=== PATIENT | female | born 1960 | race Caucasian/White ===

== ENCOUNTER 2017-01-20 16:26 | Inpatient (IN) ==
[2017-01-20] MEDS ORDERED: ASPIRIN 81 MG TAB.CHEW CHEWED ONE (16:33)
[2017-01-20] MEDS ORDERED: IPRATROPIUM/ALBUTEROL 3 ML AMPUL.NEB NEB ONE ×2 (16:33→19:04)
--- NOTE | 2017-01-20 16:40 | Emergency Department Note ---
SOB HPI - General Chief Complaint: Shortness of Breath/Dyspnea Stated Complaint: short of breath Time Seen by Provider: 01/20/17 16:33 Source: patient, family Mode of arrival: wheelchair Limitations: physical limitation - History of Present Illness 56-year-old female with a history of shortness of breath and wheezing over the past 24 hours. Increased over the past 6 hours. Has a history of asthma and COPD she did states that she had an episode of left arm pain for an hour and a half prior to coming to the ED. denies any pain at this time there is no chest pain. Denies cough there has been no sputum production. She denies upper respiratory type signs or symptoms. Patient is afebrile denies any GI disturbances denies nausea vomiting no diarrhea constipation problems no hematemesis no melena - Related Data Home Medications Medication Instructions Recorded Confirmed Atorvastatin [Lipitor] 80 mg PO HS 06/21/15 06/23/15 Carbidopa/Levodopa 25/250 [Sinemet 1 tab PO BID 06/21/15 06/23/15 25/250] Carvedilol [Coreg] 18.75 mg PO BIDCC 06/21/15 06/23/15 Clopidogrel [Plavix] 75 mg PO DAILY 06/21/15 06/23/15 Cyclobenzaprine [Flexeril] 10 mg PO TID 06/21/15 06/23/15 DULoxetine HCL [Cymbalta] 120 mg PO DAILY 06/21/15 06/23/15 Doxepin [Sinequan] 25 mg PO HS 06/21/15 06/23/15 Estradiol [Estrace] 2 mg PO DAILY 06/21/15 06/23/15 Etodolac [Etodolac ER] 1,200 mg PO BID 06/21/15 06/23/15 Fenofibrate Nanocrystallized 145 mg PO DAILY 06/21/15 06/23/15 [Fenofibrate] Furosemide [Lasix] 40 mg PO DAILY 06/21/15 06/23/15 Ipratropium [place] [Atrovent Hfa] 1 - 2 puff INH Q6H 06/21/15 06/23/15 Ipratropium/Albuterol [Duoneb] 3 ml NEB Q4HP PRN 06/21/15 06/23/15 Lansoprazole [Prevacid] 30 mg PO DAILY 06/21/15 06/23/15 sitaGLIPtin [Januvia] 100 mg PO DAILY 06/21/15 06/23/15 Insulin 70/30, Human [Novolin 70 - 80 unit SQ ACB 06/23/15 06/23/15 70/30] Isosorbide Mononitrate [Isosorbide 60 mg PO HS 06/23/15 06/23/15 Mononitrate ER] Methocarbamol [Robaxin] 500 mg PO TID 06/23/15 06/23/15 Metoclopramide [Reglan] 10 mg PO BIDAC 06/23/15 06/23/15 Montelukast [Singular] 10 mg PO HS 06/23/15 06/23/15 Zolpidem [Ambien] 10 mg PO HSP PRN 06/23/15 06/23/15 Allergies Allergy/AdvReac Type Severity Reaction Status Date / Time aspirin Allergy Anaphylaxis Verified 06/21/15 18:07 ramelteon [From Rozerem] Allergy Unknown Verified 06/24/15 11:09 trazodone Allergy Unknown Verified 06/24/15 11:09 Review of Systems All systems ED: reviewed and negative except as stated. Constitutional: Denies: fever ENT ED: Denies: ear pain Cardiovascular: Denies: chest pain Respiratory: Reports: dyspnea, wheezes. Denies: cough, hemoptysis Gastrointestinal: Denies: abdominal pain, nausea, vomiting Genitourinary: Denies: urgency, dysuria Past Medical History - Past Medical History Medical history: Reports: CHF, COPD, fibromyalgia, other (Migraines, peripheral neuropathy, CHF,) Surgical history ED: Reports: other (Cardiac cath, knee surgery) Psychiatric history: Reports: depression - Social History smoking status: Former smoker Alcohol use: Reports: None Drug use: Reports: none Physical Exam - General Limitations: physical limitation General appearance: alert - Head Head exam: atraumatic - Eye Eye exam: Present: normal appearance, PERRL - ENT ENT exam: normal exam, normal oropharynx - Neck Neck exam: Present: normal inspection, full ROM - Chest Chest inspection: Present: normal inspection - Respiratory Respiratory exam: Present: normal lung sounds bilaterally - Cardiovascular Cardiovascular exam: Present: regular rate, normal rhythm - Abdominal Exam Abdominal exam: Present: soft. Absent: distention, tenderness - Extremities Exam Extremities exam: Present: normal inspection, full ROM - Back Exam Back exam: Present: normal inspection, full ROM - Neurological Exam Neurological exam: Present: oriented X3, CN II-XII intact - Psychiatric Psychiatric exam: Present: normal affect Course Vital Signs Temperature 98.1 F 01/20/17 16:26 Pulse Rate 102 H 01/20/17 16:26 Respiratory Rate 20 01/20/17 16:26 Blood Pressure 152/76 01/20/17 16:26 Pulse Oximetry (%) 87 L 01/20/17 16:26 Temperature 98.1 F 01/20/17 16:26 Pulse Rate 108 H 01/20/17 19:09 Respiratory Rate 17 01/20/17 19:09 Blood Pressure 126/66 01/20/17 18:48 Pulse Oximetry (%) 100 01/20/17 19:09 Shortness of Breath/Dyspnea - Lab Data Result diagrams: 01/20/17 16:37 01/20/17 16:36 Lab Results 01/20/17 01/20/17 01/20/17 Range/Units 16:36 16:36 16:37 WBC 8.1 (4.5-11.0) K/mcL RBC 3.41 L (4.00-5.20) M/mcL Hgb 10.4 L (12.0-15.0) g/dL Hct 32.2 L (36.0-48.0) % POC Hct (36.0-48.0) % MCV 94.3 (80.0-100.0) fL MCH 30.6 (26.0-34.0) pg MCHC 32.4 (31.0-36.0) g/dL RDW 16.8 H (11.5-14.5) % Plt Count 186 (140-440) K/mcL MPV 7.7 (7.4-10.4) fL Gran % 83.1 H (38.0-78.0) % Lymph % (Auto) 8.5 L (15.5-49.0) % [place] % (Auto) 5.2 (1.0-12.0) % Eos % (Auto) 3.1 (0.0-7.0) % Baso % (Auto) 0.1 (0.0-2.0) % Gran # 6.7 (1.8-8.0) K/mcL Lymph # 0.7 L (1.5-4.8) K/mcL [place] # 0.4 (0.1-0.9) K/mcL Eos # 0.3 (0.0-0.7) K/mcL Baso # 0 (0.0-0.3) K/mcL POC Sodium (133-145) mmol/L Sodium Cancelled 140 POC Potassium (3.3-5.1) mmol/L Potassium Cancelled 5.6 H POC Chloride (96-108) mmol/L Chloride Cancelled 97 Carbon Dioxide Cancelled 25 POC Total CO2 (22-30) mmol/L Anion Gap Cancelled 18.0 H POC BUN (6-20) mg/dl BUN Cancelled 57 H Creatinine Cancelled 1.5 H POC Creatinine (0.6-1.1) mg/dl GFR Calculation Cancelled 39 BUN/Creatinine Ratio Cancelled Glucose Cancelled 184 H POC Glucose (70-105) mg/dL Calcium Cancelled 9.9 POC WB Ioniz Calcium (1.16-1.32) mmol/L Total Bilirubin Cancelled 0.8 AST Cancelled 52 H ALT Cancelled 21 Alkaline Phosphatase Cancelled 32 L Total Creatine Kinase 46 (24-170) IU/L CK-MB (CK-2) 2.9 (0-2.9) ng/ml Myoglobin 46 (25-58) ng/ml Troponin T (0-0.03) ng/ml NT-Pro-B Natriuret Pep 1261.0 H (0-125) pg/ml Total Protein Cancelled 7.9 Albumin Cancelled 4.4 Globulin Cancelled 3.5 Albumin/Globulin Ratio Cancelled 1.3 Urine Color Urine Appearance Urine pH (5.0-9.0) Ur Specific [place] (1.000-1.035) Urine Protein (NEG) mg/dL Urine Glucose (UA) (NEG) mg/dL Urine Ketones (NEG) mg/dL Urine Occult Blood (<0.03) mg/dL Urine Nitrate (NEG) Urine Bilirubin (NEG) mg/dL Urine Ictotest (NEG) Urine Urobilinogen (NEG) mg/dL Ur Leukocyte Esterase (NEG) /uL Ur Culture Indicated? 01/20/17 01/20/17 01/20/17 Range/Units 16:37 18:18 19:40 WBC (4.5-11.0) K/mcL RBC (4.00-5.20) M/mcL Hgb (12.0-15.0) g/dL Hct (36.0-48.0) % POC Hct 31.0 L (36.0-48.0) % MCV (80.0-100.0) fL MCH (26.0-34.0) pg MCHC (31.0-36.0) g/dL RDW (11.5-14.5) % Plt Count (140-440) K/mcL MPV (7.4-10.4) fL Gran % (38.0-78.0) % Lymph % (Auto) (15.5-49.0) % [place] % (Auto) (1.0-12.0) % Eos % (Auto) (0.0-7.0) % Baso % (Auto) (0.0-2.0) % Gran # (1.8-8.0) K/mcL Lymph # (1.5-4.8) K/mcL [place] # (0.1-0.9) K/mcL Eos # (0.0-0.7) K/mcL Baso # (0.0-0.3) K/mcL POC Sodium 140 (133-145) mmol/L Sodium POC Potassium 5.0 (3.3-5.1) mmol/L Potassium POC Chloride 104 (96-108) mmol/L Chloride Carbon Dioxide POC Total CO2 28 (22-30) mmol/L Anion Gap POC BUN 58 H (6-20) mg/dl BUN Creatinine POC Creatinine 1.4 H (0.6-1.1) mg/dl GFR Calculation BUN/Creatinine Ratio Glucose POC Glucose 101 (70-105) mg/dL Calcium POC WB Ioniz Calcium 1.08 L (1.16-1.32) mmol/L Total Bilirubin AST ALT Alkaline Phosphatase Total Creatine Kinase (24-170) IU/L CK-MB (CK-2) (0-2.9) ng/ml Myoglobin (25-58) ng/ml Troponin T < 0.01 (0-0.03) ng/ml NT-Pro-B Natriuret Pep (0-125) pg/ml Total Protein Albumin Globulin Albumin/Globulin Ratio Urine Color Yellow Urine Appearance Clear Urine pH 5.0 (5.0-9.0) Ur Specific [place] 1.016 (1.000-1.035) Urine Protein Neg (NEG) mg/dL Urine Glucose (UA) Negative (NEG) mg/dL Urine Ketones Neg (NEG) mg/dL Urine Occult Blood Neg (<0.03) mg/dL Urine Nitrate Neg (NEG) Urine Bilirubin Neg (NEG) mg/dL Urine Ictotest Neg (NEG) Urine Urobilinogen 4.0 A (NEG) mg/dL Ur Leukocyte Esterase Neg (NEG) /uL Ur Culture Indicated? No Disposition Condition: Fair Referrals: Delmar Thapa MD [Primary Care Provider] -
[2017-01-20] MEDS ORDERED: ASPIRIN 81 MG TAB.CHEW ONE (16:41)
[2017-01-20 17:03] LABS: Basophils # (Auto) 0 K/mcL (0.0-0.3); Basophils % (Auto) 0.1 % (0.0-2.0); Eosinophils # (Auto) 0.3 K/mcL (0.0-0.7); Eosinophils % (Auto) 3.1 % (0.0-7.0); Granulocytes % (Auto) 83.1 % (38.0-78.0); Lymphocytes # (Auto) 0.7 K/mcL (1.5-4.8); Lymphocytes % (Auto) 8.5 % (15.5-49.0); Mean Cell Volume 94.3 fL (80.0-100.0); Mean Corpuscular HGB Conc 32.4 g/dL (31.0-36.0); Mean Corpuscular Hemoglobin 30.6 pg (26.0-34.0); Monocytes # (Auto) 0.4 K/mcL (0.1-0.9); Monocytes % (Auto) 5.2 % (1.0-12.0); Platelet Count 186 K/mcL (140-440); RBC 3.41 M/mcL (4.00-5.20); Red Cell Distribution Width 16.8 % (11.5-14.5)
--- NOTE | 2017-01-20 17:11 | XRay Report ---
CLINICAL INFORMATION: Chest pain COMPARISON: 06/26/2015 FINDINGS: Mild cardiomegaly is unchanged. Scoliosis distorts the mediastinal contours - as previously seen. Mediastinum is otherwise normal. Pulmonary vessels are unremarkable with lungs are clear. No effusions. IMPRESSION: Mild cardiomegaly - stable. No acute disease Interpreted and Authenticated by: Horace Currie 01/20/17
[2017-01-20 17:28] LABS: Creatine Kinase 46 IU/L (24-170); Creatine Kinase MB 2.9 ng/ml (0-2.9); Myoglobin 46 ng/ml (25-58)
[2017-01-20 17:29] LABS: ALT/SGPT 21 U/l (0-40); Albumin 4.4 gm/dL (3.2-5.2); Albumin/Globulin Ratio 1.3 (1.0-2.3); Alkaline Phosphatase 32 U/L (39-117); Blood Urea Nitrogen 57 mg/dl (6-20)
[2017-01-20 19:35] LABS: Appearance,Urine CLEAR; Bilirubin,Urine NEG (NEG); Color,Urine YELLOW; Glucose,Urine (UA) NEGATIVE (NEG); Ictotest,Urine NEG (NEG); Leukocyte Esterase,Urine NEG /uL (NEG); Nitrate,Urine NEG (NEG); Protein,Urine NEG (NEG); Specific Gravity,Urine 1.016 (1.000-1.035); Urine Blood NEG mg/dL (<0.03)
[2017-01-20] MEDS ORDERED: DOXEPIN 25 MG CAPSULE PO SCH (21:00)
--- NOTE | 2017-01-20 22:09 | Internal Med History&Physical ---
Medical - H&P: HPI Patient information: Note initiated : 01/20/17 at 10:03 pm Service Date, if different from initiated Date: [] Patient: Cari Ni a 56 y/o F admitted on for short of breath. Chief Complaint: [] History of present illness: Ms. Ni is a 56 year old female with h/o copd on home oxygen 3L, DM, and multiple comorbidities presents to the ER with shortness of breath x 1 week the patient notes she has been feeling short of breath associated with wheezing 1 week ago, was seen by her PCP who started her on medrol dose pack, she had some improvement but over last 2 days her condition has worsened, She is short of breath, with decreased a functional status, she is using duonebs q 2 hrs at home and was still not doing well, there fore she decided to come to the ER. The patient notes she has had cough x 2 days, dry. The patient in the ER was noted to be needing increased oxygen, 5L to maintain her oxygen saturation, lab work is unremarkable (chr anemia), ua is negative. CXR is negative. EKG does not show any acute ST wave changes, trop x 2 is neg. The patient reports one sick contact, likely grand daughter approx 1 week ago. She will be admitted to the hospital for futher management. All systems: reviewed and no additional remarkable complaints except as stated ( as per HPI) Medical - H&P: PMH Medical history: Medical History (Last Updated 01/15/17 @ 14:27 by [employer]) Muscle spasm of back (Acute) Exacerbation of chronic back pain (Acute) Shortness of Breath (Acute) Anemia (Acute) CHF CAD DM Morbid obesity Chr back pain Asthma Surgical history: Hysterectomy Cholesycstectomy tonsillectomy Pertinent family history: father with cad, dm, htn, copd grandfather asthma Social history: lives alone with her pet dog (educated regarding increased risk of asthma, copd ) ex smoker, quit 10 yrs ago, approx 32 pack year denies recreational drugs Medical - H&P: Meds Home Medications Medication Instructions Recorded Confirmed Type Atorvastatin [Lipitor] 80 mg PO HS 06/21/15 06/23/15 History Carbidopa/Levodopa 25/250 [Sinemet 1 tab PO BID 06/21/15 06/23/15 History 25/250] Carvedilol [Coreg] 18.75 mg PO BIDCC 06/21/15 06/23/15 History Clopidogrel [Plavix] 75 mg PO DAILY 06/21/15 06/23/15 History DULoxetine HCL [Cymbalta] 120 mg PO DAILY 06/21/15 06/23/15 History Doxepin [Sinequan] 25 mg PO HS 06/21/15 06/23/15 History Estradiol [Estrace] 2 mg PO DAILY 06/21/15 06/23/15 History Etodolac [Etodolac ER] 1,200 mg PO BID 06/21/15 06/23/15 History Fenofibrate Nanocrystallized 145 mg PO DAILY 06/21/15 06/23/15 History [Fenofibrate] Furosemide [Lasix] 40 mg PO DAILY 06/21/15 06/23/15 History Ipratropium [place] [Atrovent Hfa] 1 - 2 puff INH Q6H 06/21/15 06/23/15 History Ipratropium/Albuterol [Duoneb] 3 ml NEB Q4HP PRN 06/21/15 06/23/15 History Lansoprazole [Prevacid] 30 mg PO DAILY 06/21/15 06/23/15 History sitaGLIPtin [Januvia] 100 mg PO DAILY 06/21/15 06/23/15 History Insulin 70/30, Human [Novolin 70 - 80 unit SQ ACB 06/23/15 06/23/15 History 70/30] Isosorbide Mononitrate [Isosorbide 60 mg PO HS 06/23/15 06/23/15 History Mononitrate ER] Methocarbamol [Robaxin] 500 mg PO TID 06/23/15 06/23/15 History Metoclopramide [Reglan] 10 mg PO BIDAC 06/23/15 06/23/15 History Zolpidem [Ambien] 10 mg PO HSP PRN 06/23/15 06/23/15 History Ezetimibe 10 mg PO DAILY 01/20/17 01/20/17 History Ezetimibe [Zetia] 10 mg PO HS 01/20/17 01/20/17 History Fenofibrate Nanocrystallized 145 mg PO DAILY 01/20/17 01/20/17 History [[place]] Fluticasone Propionate [Flonase] 2 spray NS BID 01/20/17 01/20/17 History Insulin 70/30, Human [Novolin 180 - 200 unit SQ DAILY 01/20/17 01/20/17 History 70/30] Metolazone 5 mg PO DAILY 01/20/17 01/20/17 History Nitroglycerin [Nitrostat] 0.4 mg SL Q5M PRN 01/20/17 01/20/17 History Omeprazole 40 mg PO DAILY 01/20/17 01/20/17 History glipiZIDE/METFORMIN HCL 2 each PO BID 01/20/17 01/20/17 History [Glipizide-Metformin 5-500 mg] methylPREDNISolone [Medrol] 4 mg PO TID 01/20/17 01/20/17 History Allergies Allergy/AdvReac Type Severity Reaction Status Date / Time aspirin Allergy Anaphylaxis Verified 06/21/15 18:07 ramelteon [From Rozerem] Allergy Unknown Verified 06/24/15 11:09 trazodone Allergy Unknown Verified 06/24/15 11:09 Medical - H&P: Exam - Constitutional Vitals: Temp Pulse Resp BP Pulse Ox 98.1 F 104 H 17 150/86 83 L 01/20/17 16:26 01/20/17 21:28 01/20/17 21:28 01/20/17 21:16 01/20/17 21:28 Exam: GENERAL: The patient is a well-developed, well-nourished in no apparent distress. Is alert and oriented x3. morbidly obese VITAL SIGNS: Reviewed and as noted elsewhere. HEENT: Head is normocephalic and atraumatic. Extraocular muscles are intact. Pupils are equal, round, and reactive to light. Nares appeared normal. Mouth appears any without lesions. Mucous membranes are moist. NECK: Normal to inspection, Supple, No lymphadenopathy or thyromegaly. LUNGS: Air entry equal on both sides, decreased air entry, prolonged exp phase, shagufta exp wheezing. no crackles, speaking full sentences, no accessory muscle use. HEART: Regular rate and rhythm normal, S1 and S2 heard, no Gallop, S3 or Rub Noted, No Gross murmur heard. ABDOMEN: Soft, nontender, and nondistended. Positive bowel sounds. No hepatosplenomegaly was noted. EXTREMITIES: No cyanosis, clubbing, rash, lesions or edema. NEUROLOGIC: Cranial nerves II through XII are grossly intact. Motor and Sensory System Grossly Intact PSYCHIATRIC: Normal affect, Normal Mood. Appropriate Behavior. SKIN: No ulceration or wounds noted, No jaundice, No rash noted. Medical - H&P: Reslt - Labs CBC & Chem 7: 01/20/17 16:37 01/20/17 16:36 Labs: Short CBC 01/20/17 Range/Units 16:37 WBC 8.1 (4.5-11.0) K/mcL Hgb 10.4 L (12.0-15.0) g/dL Hct 32.2 L (36.0-48.0) % Plt Count 186 (140-440) K/mcL BMP 01/20/17 01/20/17 16:36 16:36 Sodium Cancelled 140 Potassium Cancelled 5.6 H Chloride Cancelled 97 Carbon Dioxide Cancelled 25 BUN Cancelled 57 H Creatinine Cancelled 1.5 H Glucose Cancelled 184 H Calcium Cancelled 9.9 Cardiac Enzymes 01/20/17 01/20/17 01/20/17 Range/Units 16:36 16:37 19:40 Total Creatine Kinase 46 (24-170) IU/L CK-MB (CK-2) 2.9 (0-2.9) ng/ml Troponin T < 0.01 < 0.01 (0-0.03) ng/ml Liver Function 01/20/17 01/20/17 Range/Units 16:36 16:36 Total Bilirubin Cancelled 0.8 AST Cancelled 52 H ALT Cancelled 21 Alkaline Phosphatase Cancelled 32 L Albumin Cancelled 4.4 Urine 01/20/17 Range/Units 18:18 Urine Color Yellow Urine Appearance Clear Urine pH 5.0 (5.0-9.0) Ur Specific [place] 1.016 (1.000-1.035) Urine Protein Neg (NEG) mg/dL Urine Glucose (UA) Negative (NEG) mg/dL - EKG Data EKG comments: 01/20/17 22:17 sinus, no acute ST wave changes. Medical - H&P: A/P - Narrative A/P Narrative: A/P Acute on Chr resp failure: On 5L of oxygen, at home on 3L, secondary to COPD exacerbation, continue management of underlying condition. Acute COPD exacerbation: Failed outpatient treatment, treat with duonebs, IV steroids, zithromax. DM: Hold home meds, sliding scale insulin for now Chr back pain: resume home meds once verified. CHF: not fluid overloaded clinically, bnp elevated, monitor, resume home meds Morbid obesty DVT heparin sq Diet DM, cardiac diet Code : DNR
[2017-01-20] MEDS ORDERED: NALOXONE HCL 0.4 MG/ML VIAL IV PRN (22:29)
[2017-01-20] MEDS ORDERED: NITROGLYCERIN 0.4 MG TAB.SUBL SL PRN (22:29)
[2017-01-20] MEDS ORDERED: DEXTROSE 50% 50 ML VIAL IV PRN (22:29)
[2017-01-20] MEDS ORDERED: MAGNESIUM HYDROXIDE 30 ML ORAL.SUSP PO PRN (22:29)
[2017-01-20] MEDS ORDERED: ACETAMINOPHEN 325 MG TABLET PO PRN (22:29)
[2017-01-20] MEDS ORDERED: AZITHROMYCIN 250 MG TABLET PO ONE (22:29)
[2017-01-20] MEDS ORDERED: ONDANSETRON 4 MG/2 ML VIAL IV PRN (22:29)
[2017-01-20] MEDS: HEPARIN 5,000 UNIT/ML VIAL SQ SCH (23:08)
[2017-01-20] MEDS: ZOLPIDEM 10 MG TABLET PO PRN (23:09)
[2017-01-20] MEDS: METOCLOPRAMIDE 10 MG TABLET PO SCH (23:09)
[2017-01-20] MEDS: ISOSORBIDE MONONITRATE 60 MG TAB.XL.24H PO SCH (23:09)
[2017-01-20] MEDS: DOXEPIN 25 MG CAPSULE PO SCH (23:09)
[2017-01-20] MEDS: HYDROcodone/APAP 5/325MG TABLET PO PRN (23:09)
[2017-01-20] MEDS: methylPREDNISolone SOD SUCC 125 MG/2 ML VIAL IV SCH (23:10)
[2017-01-20] MEDS: METHOCARBAMOL 750 MG TABLET PO SCH (23:10)
[2017-01-20] MEDS: IPRATROPIUM/ALBUTEROL 3 ML AMPUL.NEB NEB SCH (23:21)
[2017-01-21] MEDS: IPRATROPIUM/ALBUTEROL 3 ML AMPUL.NEB NEB SCH ×6 (02:04→23:04)
[2017-01-21] MEDS: HYDROcodone/APAP 5/325MG TABLET PO PRN ×2 (03:46→20:33)
[2017-01-21 05:33] LABS: Basophils # (Auto) 0 K/mcL (0.0-0.3); Basophils % (Auto) 0 % (0.0-2.0); Eosinophils # (Auto) 0.1 K/mcL (0.0-0.7); Eosinophils % (Auto) 1.4 % (0.0-7.0); Granulocytes % (Auto) 91.9 % (38.0-78.0); Lymphocytes # (Auto) 0.3 K/mcL (1.5-4.8); Lymphocytes % (Auto) 4.2 % (15.5-49.0); Mean Cell Volume 95.5 fL (80.0-100.0); Mean Corpuscular HGB Conc 32.4 g/dL (31.0-36.0); Mean Corpuscular Hemoglobin 30.9 pg (26.0-34.0); Monocytes # (Auto) 0.2 K/mcL (0.1-0.9); Monocytes % (Auto) 2.5 % (1.0-12.0); Platelet Count 158 K/mcL (140-440); RBC 3.28 M/mcL (4.00-5.20)
[2017-01-21] MEDS: methylPREDNISolone SOD SUCC 125 MG/2 ML VIAL IV SCH ×3 (06:03→22:35)
[2017-01-21 06:13] LABS: ALT/SGPT 25 U/l (0-40); Albumin 4.1 gm/dL (3.2-5.2); Albumin/Globulin Ratio 1.2 (1.0-2.3); Alkaline Phosphatase 30 U/L (39-117); Bilirubin,Direct 0.2 mg/dL (0.0-0.3); Blood Urea Nitrogen 46 mg/dl (6-20); Gamma Glutamyl Transpeptidase 43 U/L (5-36); Magnesium 1.9 mg/dL (1.6-2.5); Uric Acid 4.7 mg/dL (2.5-8.0)
[2017-01-21] MEDS: METOCLOPRAMIDE 10 MG TABLET PO SCH ×4 (07:26→20:33)
[2017-01-21] MEDS: METOLAZONE 2.5 MG TABLET PO SCH (07:26)
[2017-01-21] MEDS: INSULIN LISPRO 1 UNIT/0.01 ML UNIT SQ SCH ×5 (07:26→22:35)
[2017-01-21] MEDS: PANTOPRAZOLE 40 MG TABLET PO SCH (07:26)
[2017-01-21] MEDS ORDERED: NON FORMULARY MEDICATION 1 DOSE MISCELL (Lansoprazole [Prevacid] 30 MG) PO SCH (09:00)
[2017-01-21] MEDS ORDERED: CARBIDOPA/LEVODOPA 25/250 TABLET PO SCH (09:00)
[2017-01-21] MEDS ORDERED: CARBIDOPA/LEVODOPA 10/100 TABLET PO ONE (09:15)
[2017-01-21] MEDS: diphenhydrAMINE 25 MG CAPSULE PO SCH (09:24)
[2017-01-21] MEDS: ESTRADIOL 1 MG TABLET PO SCH (09:24)
[2017-01-21] MEDS: METHOCARBAMOL 750 MG TABLET PO SCH ×3 (09:25→20:32)
[2017-01-21] MEDS: DULoxetine 30 MG CAPSULE PO SCH (09:25)
[2017-01-21] MEDS: FUROSEMIDE 40 MG TABLET PO SCH ×2 (09:25→15:54)
[2017-01-21] MEDS: EZETIMIBE 10 MG TABLET PO SCH (09:25)
[2017-01-21] MEDS: CLOPIDOGREL 75 MG TABLET PO SCH (09:25)
[2017-01-21] MEDS: CARVEDILOL 12.5 MG TABLET PO SCH ×2 (09:25→17:21)
[2017-01-21] MEDS: FENOFIBRATE 43 MG CAPSULE PO SCH (09:25)
[2017-01-21] MEDS: AZITHROMYCIN 250 MG TABLET PO SCH (09:26)
[2017-01-21] MEDS: HEPARIN 5,000 UNIT/ML VIAL SQ SCH ×2 (09:26→20:34)
[2017-01-21] MEDS: FLUTICASONE PROPIONATE SPRAY.NAS NS SCH ×2 (09:27→22:00)
--- NOTE | 2017-01-21 10:21 | Internal Med Progress Note ---
Medical - PN: Subj Patient information: Note initiated : 01/21/17 at 10:15 am Service Date, if different from initiated Date: [] Patient: Cari Ni a 56 y/o F admitted on 01/20/17 for Shortness of Breath/ COPD. Chief Complaint: [] Interval history: Ms. Ni is a 56 year old female with h/o copd on home oxygen 3L, DM, and multiple comorbidities presents to the ER with shortness of breath x 1 week the patient notes she has been feeling short of breath associated with wheezing 1 week ago, was seen by her PCP who started her on medrol dose pack, she had some improvement but over last 2 days her condition has worsened, She is short of breath, with decreased a functional status, she is using duonebs q 2 hrs at home and was still not doing well, there fore she decided to come to the ER. The patient notes she has had cough x 2 days, dry. The patient in the ER was noted to be needing increased oxygen, 5L to maintain her oxygen saturation, lab work is unremarkable (chr anemia), ua is negative. CXR is negative. EKG does not show any acute ST wave changes, trop x 2 is neg.The patient reports one sick contact, likely grand daughter approx 1 week ago. She will be admitted to the hospital for further management. 01/21: Patient is seen examined, no acute overnight events, she slept well, was able to tolerate her breakfast ok, Her breathing is better today, but she is still short of breath with less than usual activity. she remains on steroids, duonebs and zithromax. No new complaints. Pertinent ROS: Denies headache, dizziness Denies chest pain, palpitations cough and shortness of breath (improving) Denies abdominal pain, nausea or vomiting. - Constitutional Vitals: Vital Signs Temp Pulse Resp BP Pulse Ox 98.0 F 98 H 18 158/88 92 01/21/17 07:00 01/21/17 07:40 01/21/17 07:40 01/21/17 07:00 01/21/17 08:00 Period Temp Pulse Resp BP Sys/Kim Pulse Ox Last 24 Hr 95.1 F-98.0 F 98-113 - 144-158/76-88 91-96 Intake and Output 01/20/17 01/21/17 01/21/17 21:59 05:59 13:59 Intake Total 360 / 360 240 / 240 Output Total 950 / 950 Balance -590 / -590 240 / 240 Weight 263 lb Intake & Output: Intake & Output 01/20/17 01/21/17 01/21/17 21:59 05:59 13:59 Intake Total 360 / 360 240 / 240 Output Total 950 / 950 Balance -590 / -590 240 / 240 Weight 263 lb Intake: Oral 360 / 360 240 / 240 Output: Urine Catheter Amount 700 / 700 Void Amount 250 / 250 Other: Meal Breakfast Percent of Meal Consumed 100% Feeding Ability Independent # Bowel Movements 0 1 Exam: Constitutional; Afebrile, cooperative, alert, not in distress, morbidly obese Eyes- No icterus, No periorbital swelling Ears- Ext ear normal, hearing normal to conversation. Neck- Midline trachea, supple Respiratory system: Air Entry equal on both sides, prolonged exp phase, mild exp wheeze. CVS- Rate rhythm regular, S1,S2 heard, no gallop, no rub. Abdomen- Soft nontender abdomen, no organomegaly, no tenderness, no guarding or rigidity, MENHADEN VESSEL PILOT- AOOx3, moving all extremities, no gross focal deficit noted. Medical - PN: Obj Da - Labs CBC & Chem 7: 01/21/17 03:55 01/21/17 03:55 Labs: Abnormal Lab Results 01/21/17 01/21/17 03:55 03:55 RBC 3.28 L Hgb 10.1 L Hct 31.3 L RDW 17.0 H Gran % 91.9 H Lymph % (Auto) 4.2 L Lymph # 0.3 L Potassium 5.3 H BUN 46 H Creatinine 1.2 H Glucose 248 H GGT 43 H AST 40 H Alkaline Phosphatase 30 L Triglycerides 259 H Meds: Medications Acetaminophen (Tylenol) 650 mg PO Q6HP PRN PRN Reason: PAIN/FEVER > 101 Acetaminophen/Hydrocodone Bitart ([place] 5/325mg) 1 tab PO Q4HP PRN PRN Reason: Pain Last Admin: 01/21/17 03:46 Dose: 1 tab Albuterol/Ipratropium (Duoneb) 3 ml NEB Q4HRT [facility]ANG Last Admin: 01/21/17 07:39 Dose: 3 ml Atorvastatin Calcium (Lipitor) 80 mg PO HS [facility]ANG Azithromycin (Zithromax) 250 mg PO DAILY [facility] Stop: 01/24/17 09:01 Carbidopa/Levodopa (Sinemet 10/100) 2 tab PO BID [facility] Carvedilol (Coreg) 25 mg PO BIDCC [facility] Clopidogrel Bisulfate (Plavix) 75 mg PO DAILY [facility] Dextrose (Dextrose 50%) 0 ml IV UD PRN PRN Reason: Hypoglycemia Diagnostic Test (Pha) (Accu-Chek) 1 each FS ACHS [facility] Last Admin: 01/21/17 07:20 Dose: 1 each Diphenhydramine HCl (Benadryl) 50 mg PO DAILY [facility] Doxepin HCl (Sinequan) 25 - 50 mg PO HS [facility] Last Admin: 01/20/17 23:09 Dose: 50 mg Duloxetine HCl (Cymbalta) 60 mg PO DAILY [facility] Ezetimibe (Zetia) 10 mg PO DAILY [facility] Estradiol (Estrace) 2 mg PO DAILY [facility] Fenofibrate (Antara) 129 mg PO DAILY [facility] Fluticasone Propionate (Flonase) 2 spray NS BID [facility] Furosemide (Lasix) 40 mg PO BIDD [facility] Heparin Sodium (Porcine) (Heparin) 5,000 unit SQ Q12 [facility] Last Admin: 01/20/17 23:08 Dose: 5,000 unit Insulin Human Lispro (Humalog) 0 unit SQ [facility] PRN Reason: Protocol Last Admin: 01/21/17 07:26 Dose: 9 unit Isosorbide Mononitrate (Imdur) 60 mg PO HS [facility] Last Admin: 01/20/17 23:09 Dose: 60 mg Magnesium Hydroxide (Milk Of Magnesia) 30 ml PO DAILYP PRN PRN Reason: Constipation Methocarbamol (Robaxin) 750 mg PO TID [facility] Last Admin: 01/20/17 23:10 Dose: 750 mg Methylprednisolone Sodium Succinate (Solu-Medrol) 62.5 mg IV Q8 [facility] Last Admin: 01/21/17 06:03 Dose: 62.5 mg Metoclopramide HCl (Reglan) 10 mg PO ACHS [facility] Last Admin: 01/21/17 07:26 Dose: 10 mg Metolazone (Zaroxolyn) 5 mg PO DAILY@0730 [facility] Last Admin: 01/21/17 07:26 Dose: 5 mg Naloxone HCl (Narcan) 0.1 mg IV Q2MIN PRN PRN Reason: Opiate Reversal Nitroglycerin (Nitrostat) 0.4 mg SL Q5M PRN PRN Reason: Chest Pain Ondansetron HCl (Zofran) 4 mg IV Q4HP PRN PRN Reason: Nausea And Vomiting Pantoprazole Sodium (Protonix) 40 mg PO QAMAC [facility] Last Admin: 01/21/17 07:26 Dose: 40 mg Zolpidem Tartrate (Ambien) 10 mg PO HSP PRN PRN Reason: Sleep Last Admin: 01/20/17 23:09 Dose: 10 mg Medical - PN: A/P - Time Spent With Patient Total time spent is greater than 50% in coordination of care (as documented) at patient's floor/unit and/or counseling patient: - Narrative A/P Narrative: A/P Acute on Chr resp failure: On 3-5L of oxygen, at home on 3L, secondary to COPD exacerbation, continue management of underlying condition. Acute COPD exacerbation: Failed outpatient treatment, treat with duonebs, IV steroids, zithromax. improving with present management DM: Hold home meds, sliding scale insulin for now, lantus 15units bid, glucose reviewed above goal (lantus started today) Chr back pain: resume home meds once verified. CHF: not fluid overloaded clinically, bnp elevated, monitor, resumed home meds Morbid obesty DVT heparin sq Diet DM, cardiac diet Code : DNR Medical - PN: Qual - Stroke Symptom Onset Unknown: No - VTE Deep Vein Thrombosis/Pulmonary Embolism Present on Admission: No
[2017-01-21] MEDS: INSULIN GLARGINE, HUMAN 1 UNIT/0.01 ML SQ SCH ×2 (11:39→20:34)
[2017-01-21] MEDS: ISOSORBIDE MONONITRATE 60 MG TAB.XL.24H PO SCH (20:33)
[2017-01-21] MEDS: DOXEPIN 25 MG CAPSULE PO SCH (20:33)
[2017-01-21] MEDS: CARBIDOPA/LEVODOPA 10/100 TABLET PO SCH (20:33)
[2017-01-21] MEDS: ZOLPIDEM 10 MG TABLET PO PRN (20:44)
[2017-01-21] MEDS ORDERED: ATORVASTATIN 20 MG TABLET PO SCH (21:00)
[2017-01-22] MEDS: HYDROcodone/APAP 5/325MG TABLET PO PRN (03:42)
[2017-01-22] MEDS: IPRATROPIUM/ALBUTEROL 3 ML AMPUL.NEB NEB SCH ×3 (03:43→10:58)
[2017-01-22 05:29] LABS: Basophils # (Auto) 0 K/mcL (0.0-0.3); Basophils % (Auto) 0.2 % (0.0-2.0); Eosinophils # (Auto) 0 K/mcL (0.0-0.7); Eosinophils % (Auto) 0.2 % (0.0-7.0); Granulocytes % (Auto) 90.3 % (38.0-78.0); Lymphocytes # (Auto) 0.5 K/mcL (1.5-4.8); Lymphocytes % (Auto) 6.3 % (15.5-49.0); Mean Cell Volume 94.5 fL (80.0-100.0); Mean Corpuscular HGB Conc 32.8 g/dL (31.0-36.0); Monocytes # (Auto) 0.2 K/mcL (0.1-0.9); Platelet Count 159 K/mcL (140-440); RBC 3.35 M/mcL (4.00-5.20); Red Cell Distribution Width 16.4 % (11.5-14.5)
[2017-01-22] MEDS: methylPREDNISolone SOD SUCC 125 MG/2 ML VIAL IV SCH (05:51)
[2017-01-22 06:05] LABS: ALT/SGPT 7 U/l (0-40); Albumin 4.2 gm/dL (3.2-5.2); Albumin/Globulin Ratio 1.1 (1.0-2.3); Alkaline Phosphatase 32 U/L (39-117); Bilirubin,Direct < 0.2 mg/dL (0.0-0.3); Blood Urea Nitrogen 41 mg/dl (6-20); Gamma Glutamyl Transpeptidase 46 U/L (5-36); Magnesium 1.9 mg/dL (1.6-2.5); Uric Acid 5.4 mg/dL (2.5-8.0)
[2017-01-22] MEDS: METOLAZONE 2.5 MG TABLET PO SCH (07:24)
[2017-01-22] MEDS: CARVEDILOL 12.5 MG TABLET PO SCH (07:24)
[2017-01-22] MEDS: PANTOPRAZOLE 40 MG TABLET PO SCH (07:25)
[2017-01-22] MEDS: METOCLOPRAMIDE 10 MG TABLET PO SCH (07:25)
[2017-01-22] MEDS: INSULIN LISPRO 1 UNIT/0.01 ML UNIT SQ SCH (08:37)
[2017-01-22] MEDS: INSULIN GLARGINE, HUMAN 1 UNIT/0.01 ML SQ SCH (08:38)
[2017-01-22] MEDS: AZITHROMYCIN 250 MG TABLET PO SCH (08:39)
[2017-01-22] MEDS: CARBIDOPA/LEVODOPA 10/100 TABLET PO SCH (08:42)
[2017-01-22] MEDS: METHOCARBAMOL 750 MG TABLET PO SCH (08:42)
[2017-01-22] MEDS: FENOFIBRATE 43 MG CAPSULE PO SCH (08:42)
[2017-01-22] MEDS: EZETIMIBE 10 MG TABLET PO SCH (08:42)
[2017-01-22] MEDS: FUROSEMIDE 40 MG TABLET PO SCH (08:43)
[2017-01-22] MEDS: CLOPIDOGREL 75 MG TABLET PO SCH (08:43)
[2017-01-22] MEDS: ESTRADIOL 1 MG TABLET PO SCH (08:44)
[2017-01-22] MEDS: diphenhydrAMINE 25 MG CAPSULE PO SCH (08:44)
[2017-01-22] MEDS: DULoxetine 30 MG CAPSULE PO SCH (08:46)
[2017-01-22] MEDS: FLUTICASONE PROPIONATE SPRAY.NAS NS SCH (08:47)
[2017-01-22] MEDS: HEPARIN 5,000 UNIT/ML VIAL SQ SCH (08:47)
--- NOTE | 2017-01-22 10:09 | Discharge Summary ---
Medical - DS: Prov Patient information: Note initiated : 01/22/17 at 9:47 am Service Date, if different from initiated Date: [] Patient: Cari Ni 56 y/o F admitted on 01/20/17 for Shortness of Breath/ COPD. Chief Complaint: [] Date of admission: 01/20/17 22:18 Discharge date: 01/22/17 Primary care physician: Delmar Thapa Admitting clinician: Bogdan Sawyer Discharging clinician: Bogdan Sawyer Medical - DS: Meds - Discharge Medications Prescriptions: Azithromycin 250 mg PO QDAY #2 tablet predniSONE [Prednisone] 10 mg PO ONCE #23 tablet Active and Home Medications: Home Medications Atorvastatin [Lipitor] 80 mg PO HS 06/21/15 [History Confirmed 01/21/17 Last Taken 01/19/17 21:00] Carbidopa/Levodopa 25/250 [Sinemet 25/250] 1 tab PO BID 06/21/15 [History Confirmed 01/21/17 Last Taken 01/20/17 08:00] Carvedilol [Coreg] 25 mg PO BIDCC 06/21/15 [History Confirmed 01/21/17 Last Taken 01/20/17 08:00] Clopidogrel [Plavix] 75 mg PO DAILY 06/21/15 [History Confirmed 01/21/17 Last Taken 01/20/17 08:00] DULoxetine HCL [Cymbalta] 60 mg PO DAILY 06/21/15 [History Confirmed 01/21/17 Last Taken 01/20/17 08:00] Doxepin [Sinequan] 50 mg PO HS 06/21/15 [History Confirmed 01/21/17 Last Taken 01/20/17 23:00] Estradiol [Estrace] 1 mg PO DAILY 06/21/15 [History Confirmed 01/21/17 Last Taken 01/20/17 08:00] Etodolac [Etodolac ER] 1,200 mg PO BID 06/21/15 [History Confirmed 01/21/17 Last Taken 01/20/17 08:00] Fenofibrate Nanocrystallized [Fenofibrate] 145 mg PO DAILY 06/21/15 [History Confirmed 01/21/17 Last Taken 01/20/17 08:00] Furosemide [Lasix] 40 mg PO BID 06/21/15 [History Confirmed 01/21/17 Last Taken 01/20/17 08:00] Ipratropium [place] [Atrovent Hfa] 1 - 2 puff INH DAILY 06/21/15 [History Confirmed 01/21/17 Last Taken 01/20/17 08:00] Ipratropium/Albuterol [Duoneb] 3 ml NEB BID 06/21/15 [History Confirmed Last Taken 01/20/17 08:00] Lansoprazole [Prevacid] 30 mg PO DAILY 06/21/15 [History Confirmed 01/21/17 Last Taken 01/20/17 08:00] sitaGLIPtin [Januvia] 100 mg PO DAILY 06/21/15 [History Confirmed 01/21/17 Last Taken 01/20/17 08:00] Isosorbide Mononitrate [Isosorbide Mononitrate ER] 90 mg PO HS 06/23/15 [ History Confirmed 01/21/17 Last Taken 01/19/17 21:00] Methocarbamol [Robaxin] 750 mg PO TID 06/23/15 [History Confirmed 01/21/17 Last Taken 01/20/17 23:00] Metoclopramide [Reglan] 10 mg PO ACHS 06/23/15 [History Confirmed 01/21/17 Last Taken 01/20/17 08:00] Zolpidem [Ambien] 10 mg PO HSP PRN 06/23/15 [History Confirmed 01/21/17 Last Taken 01/20/17 23:00] Ezetimibe 10 mg PO DAILY 01/20/17 [History Confirmed 01/21/17 Last Taken 08:00] Ezetimibe [Zetia] 10 mg PO HS 01/20/17 [History Confirmed 01/21/17 Last Taken 21:00] Fenofibrate Nanocrystallized [Tricor] 145 mg PO DAILY 01/20/17 [History Confirmed 01/21/17 Last Taken 01/20/17 08:00] Fluticasone Propionate [Flonase] 2 spray NS BID 01/20/17 [History Confirmed Last Taken 01/20/17 08:00] Insulin 70/30, Human [Novolin 70/30] 180 - 200 unit SQ HS 01/20/17 [History Confirmed 01/21/17 Last Taken 01/20/17 22:00] Metolazone 5 mg PO DAILY 01/20/17 [History Confirmed 01/21/17 Last Taken 08:00] Nitroglycerin [Nitrostat] 0.4 mg SL Q5M PRN 01/20/17 [History Confirmed Last Taken Unknown] Omeprazole 40 mg PO DAILY 01/20/17 [History Confirmed 01/21/17 Last Taken 08:00] glipiZIDE/METFORMIN HCL [Glipizide-Metformin 5-500 mg] 2 each PO BID 01/20/17 [ History Confirmed 01/21/17 Last Taken 01/20/17 08:00] methylPREDNISolone [Medrol] 4 mg PO TID 01/20/17 [History Confirmed 01/21/17 Last Taken 01/20/17 08:00] Insulin 70/30, Human [Novolin 70/30] 70 - 100 unit SQ QAM 01/21/17 [History Confirmed 01/21/17 Last Taken 01/20/17 08:00] oxyCODONE HCL/ACETAMINOPHEN [Percocet 7.5-325 mg Tablet] 1 each PO TID 01/21/17 [History Confirmed 01/21/17 Last Taken 01/20/17 08:00] Medical - DS: Hosp Hospital course: Ms. Ni is a 56 year old female with h/o copd on home oxygen 3L, DM, and multiple comorbidities presents to the ER with shortness of breath x 1 week CXR was neg (mild cardiomegaly), she had wheezing on exam with poor air entry. Patient had increased oxygen requirement needing 5L oxygen via [place]. She was admitted to the hospital for acute copd exacerbation. COPD exacerbation: Treated with IV solumedrol, azithromycin and duonebs, patient responded to treatment very well, on discharge she was back to baseline oxygen needs, no wheezing and back to her baseline functional status. She will be discharged on a prednisone taper and zithromax. Patient chr anemia which remained stable. The rest of patients medical conditions were stable, no changes in her home medications were done. Discharge diagnosis: copd exacerbation - Time Spent with Patient Total time spent providing and/or coordinating discharge services: Less than 30 minutes Medical - DS: Exam - Constitutional Vitals: Vital Signs Temp Pulse Pulse Resp BP Pulse Ox 01/22/17 08:00 98.9 F 18 125/65 94 01/22/17 07:13 89 L 01/22/17 07:11 76 12 01/22/17 03:45 97.6 F 88 20 126/67 92 01/21/17 23:43 97.8 F 86 22 110/53 96 01/21/17 23:05 87 16 01/21/17 20:00 98.0 F 92 H 20 115/69 93 01/21/17 19:25 95 H 16 01/21/17 15:46 88 18 01/21/17 15:11 97.1 F 96 H 18 126/68 95 01/21/17 12:00 97.4 F 92 H 18 126/62 93 01/21/17 10:58 91 01/21/17 10:57 88 12 Intake and Output 01/21/17 01/22/17 01/22/17 21:59 05:59 13:59 Intake Total 200 / 200 360 / 360 Output Total 3450 / 3450 650 / 650 Balance -3250 / -3250 -290 / -290 Intake: Oral 200 / 200 360 / 360 Output: Urine Catheter Amount 3450 / 3450 650 / 650 Other: Weight 256 lb Additional comments: Constitutional; Afebrile, cooperative, alert, not in distress. Eyes- No icterus, , No periorbital swelling Ears- Ext ear normal, hearing normal to conversation. Neck- Midline trachea, supple Respiratory system: Air Entry equal on both sides, No crackles or wheezing, no rhonchi. CVS- Rate rhythm regular, S1,S2 heard, no gallop, no rub. Abdomen- Soft nontender abdomen, no organomegaly, no tenderness, no guarding or rigidity, [employer]- AOOx3, moving all extremities, no gross focal deficit noted. Medical - DS: Data Labs on day of discharge: Labs from last 24 hours 01/22/17 01/22/17 03:40 03:40 WBC 7.2 RBC 3.35 L Hgb 10.4 L Hct 31.6 L MCV 94.5 MCH 31.0 MCHC 32.8 RDW 16.4 H Plt Count 159 MPV 7.8 Gran % 90.3 H Lymph % (Auto) 6.3 L [place] % (Auto) 3.0 Eos % (Auto) 0.2 Baso % (Auto) 0.2 Gran # 6.5 Lymph # 0.5 L [place] # 0.2 Eos # 0 Baso # 0 Sodium 137 Potassium 5.0 Chloride 93 L Carbon Dioxide 31 H Anion Gap 13.0 BUN 41 H Creatinine 1.1 GFR Calculation 56 Glucose 233 H Uric Acid 5.4 Calcium 10.4 Phosphorus 3.9 Magnesium 1.9 Total Bilirubin 0.5 Direct Bilirubin < 0.2 GGT 46 H AST 33 ALT 7 Alkaline Phosphatase 32 L Lactate Dehydrogenase 201 Total Protein 8.0 Albumin 4.2 Globulin 3.8 H Albumin/Globulin Ratio 1.1 Triglycerides 289 H Medical - DS: A/P - Patient/Caregiver Discharge Instructions Activity: increase activity as tolerated Diet: Cardiac, Consistent Carbohydrate Additional Instructions: Follow up with your PCP in 7 days Go to the ER if worsening shortness of breath, fever,chest pains or any concerning symptom. Take your medications as prescribed. Prescriptions: Azithromycin 250 mg PO QDAY #2 tablet predniSONE [Prednisone] 10 mg PO ONCE #23 tablet - Follow up Plan Follow up with: Delmar Thapa MD [Primary Care Provider] - Disposition: Home, Self-Care Prognosis: Fair Rehab Potential: Fair I certify that the patient requires SNF services: No Overall status at discharge: patient is back to baseline Medical - DS: Qual - VTE Deep Vein Thrombosis/Pulmonary Embolism Present on Admission: No
== END 2017-01-22 11:50 | disposition home or self-care (01) | DRG 190 ==
LOC: ED 16:26 → ICU 22:18
PROVIDERS: ADMIT Internal Medicine; ATTEND Internal Medicine